=== PATIENT | female | born 1970 | race Caucasian/White ===

== ENCOUNTER 2019-05-30 06:23 | Emergency (ER) | payer SELFPAY ==
[~2019-05-30] VITALS: Ht 152.4 cm; Wt 88.9 kg
[~2019-05-30 06:23] MED LIST: ALPR0.5T PO; CITA10TA4 PO; CITA20TA6 PO; TRAM50TA PO
[2019-05-30 06:32] VITALS: BP 163/88
[2019-05-30] MEDS ORDERED: KETOROLAC 60 MG/2 ML VIAL. IM ONE (06:45)
[2019-05-30] MEDS ORDERED: CYCLOBENZAPRINE 10 MG TABLET. PO ONE (06:45)
[2019-05-30] MEDS ORDERED: CYCL10TA2 PO (06:49)
[2019-05-30] MEDS ORDERED: HYDR-3164 PO (06:49)
--- NOTE | 2019-05-30 06:49 | PHYS DOC ---
Past Medical History Past Medical History: Anxiety, Depression, Other Additional Past Medical Histor: SVT Past Surgical History: , Hysterectomy, Tubal ligation Additional Past Surgical Histo: carpal tunnel, breast reduction Alcohol Use: Rarely Drug Use: None Adult General Chief Complaint Chief Complaint: Neck Pain HPI HPI Patient is a 48 year old female with history of anxiety and depression and SVT who presents with complaining of neck pain. Patient complaining of gradual onset of right-sided neck pain for 1 week that getting worse for the last 3 days as an aching pain that getting worse with turning the head to right side. Patient rated her pain 9/10 and denies focal neuro deficit, fever and chills, injury, history of the same problem. Patient states she took [id number] pain medication besides hydrocodone and applied heat and ice on her neck without improvement of her pain. Review of Systems Review of Systems Constitutional: Denies fever or chills [] Eyes: Denies change in visual acuity, redness, or eye pain [] HENT: Denies nasal congestion or sore throat [] Respiratory: Denies cough or shortness of breath [] Cardiovascular: No additional information not addressed in HPI [] GI: Denies abdominal pain, nausea, vomiting, bloody stools or diarrhea [] : Denies dysuria or hematuria [] Musculoskeletal: Reports back pain, denies joint pain [] Integument: Denies rash or skin lesions [] Neurologic: Denies headache, focal weakness or sensory changes [] Endocrine: Denies polyuria or polydipsia [] All other systems were reviewed and found to be within normal limits, except as documented in this note. Current Medications Current Medications Current Medications Medications (Trade) Dose Ordered Sig/Peter Start Time Stop Time Status Last Admin Dose Admin Cyclobenzaprine HCl (Flexeril) 10 mg 1X ONCE 05/30/19 06:45 05/30/19 06:46 DC 05/30/19 06:44 10 MG Ketorolac Tromethamine (Toradol Im) 60 mg 1X ONCE 05/30/19 06:45 05/30/19 06:46 DC 05/30/19 06:44 60 MG Allergies Allergies Allergies Coded Allergies Type Severity Reaction Last Updated Verified No Known Drug Allergies 09/03/14 No Physical Exam Physical Exam Constitutional: Well developed, well nourished, mild distress, non-toxic appearance. [] HENT: Normocephalic, atraumatic. Eyes: PERRLA, EOMI, conjunctiva normal, no discharge. [] Neck: No midline tenderness, right paraspinal muscular spasm, painful range of motion without meningeal sign , supple, no stridor. [] Cardiovascular:Heart rate regular rhythm, no murmur [] Lungs & Thorax: Bilateral breath sounds clear to auscultation [] Back: No tenderness, no CVA tenderness. [] Extremities: No tenderness, no cyanosis, no clubbing, ROM intact, no edema. [] Neurologic: Alert and oriented X 3, no focal deficits noted. [] Psychologic: Affect normal, judgement normal, mood normal. [] Current Patient Data Vital Signs Vital Signs Date Time Temp Pulse Resp B/P (MAP) Pulse Ox O2 Delivery O2 Flow Rate FiO2 05/30/19 06:32 98.0 80 16 163/88 (113) 99 Room Air 98.0 EKG EKG [] Radiology/Procedures Radiology/Procedures [] Course & Med Decision Making Course & Med Decision Making Evaluation of patient in ER showed 48-year-old male patient with pain for which movement one week and was stated maybe she slept in the wrong way hit her neck. Patient had paraspinal muscle spasm in right side without meningeal sign. Patient treated with Toradol and Flexeril in ER and plan discharge patient home with diagnosis of acute cervical muscle strain. Patient was advised to apply ice and prescription for Flexeril and hydrocodone was given. Dragon Disclaimer Dragon Disclaimer This electronic medical record was generated, in whole or in part, using a voice recognition dictation system. Departure Departure Impression: Primary Impression: Acute cervical myofascial strain Disposition: 01 HOME, SELF-CARE (At 0647) Condition: IMPROVED Referrals: RAIMUNDO PRIDE MD (PCP) Patient Instructions: Cervical Strain and Sprain with [facility] Additional Instructions: Drink plenty of liquids Follow-up with your primary care physician in 3-5 days Return to ER if not getting better Apply ice on the affected area Scripts Hydrocodone/Apap 5-325 (NORCO 5-325 TABLET) 1 Each Tablet 1-2 TAB PO Q4-6HRS for pain, #14 TAB Prov: JOSUE CONSTANTINO MD 05/30/19 Cyclobenzaprine Hcl (CYCLOBENZAPRINE HCL) 10 Mg Tablet 1 TAB PO TID, #21 TAB Prov: JOSUE CONSTANTINO MD 05/30/19 Problem Qualifiers Primary Impression: Acute cervical myofascial strain Encounter type: initial encounter Qualified Codes: S16.1XXA - Strain of muscle, fascia and tendon at neck level, initial encounter JOSUE CONSTANTINO MD May 30, 2019 06:49
== END 2019-05-30 07:09 | disposition home or self-care (01) ==
LOC: ER 06:23
DX: S16.1XXA Strain of muscle, fascia and tendon at neck level, initial encounter (principal); F41.9 Anxiety disorder, unspecified; F32.9 Major depressive disorder, single episode, unspecified; Z90.710 Acquired absence of both cervix and uterus; Z98.51 Tubal ligation status; Z98.890 Other specified postprocedural states; X58.XXXA Exposure to other specified factors, initial encounter; Y93.89 Activity, other specified; Y92.89 Other specified places as the place of occurrence of the external cause; Y99.8 Other external cause status
CPT/HCPCS: 96372; 99283; J1885

== ENCOUNTER 2019-08-16 13:55 | Emergency (ER) | payer SELFPAY ==
[~2019-08-16] VITALS: Ht 152.4 cm; Wt 89.4 kg
[~2019-08-16 13:55] MED LIST changes: +CYCL10TA2 PO; +HYDR-3164 PO
--- NOTE | 2019-08-16 14:22 | PHYS DOC ---
Past Medical History Past Medical History: Anxiety, Depression, Other Additional Past Medical Histor: SVT Past Surgical History: , Hysterectomy, Tubal ligation Additional Past Surgical Histo: carpal tunnel, breast reduction Smoking Status: Current Every Day Smoker Alcohol Use: Rarely Drug Use: None Adult General Chief Complaint Chief Complaint: Palpitations HPI HPI Patient is a 48 year old female who presents with palpitations is been ongoing for the last several days. The patient states that she has a history of SVT. States that she feels short of breath sometimes when she has the palpitations. The patient also states that he gets the worse on exertion. Denies any other symptoms. Review of Systems Review of Systems Constitutional: Denies fever or chills [] Eyes: Denies change in visual acuity, redness, or eye pain [] HENT: Denies nasal congestion or sore throat [] Respiratory: Reports shortness of breath. Cardiovascular: No additional information not addressed in HPI [] GI: Denies abdominal pain, nausea, vomiting, bloody stools or diarrhea [] : Denies dysuria or hematuria [] Musculoskeletal: Denies back pain or joint pain [] Integument: Denies rash or skin lesions [] Neurologic: Denies headache, focal weakness or sensory changes [] Endocrine: Denies polyuria or polydipsia [] Complete systems were reviewed and found to be within normal limits, except as documented in this note. Current Medications Current Medications Current Medications Medications (Trade) Dose Ordered Sig/[facility] Start Time Stop Time Status Last Admin Dose Admin Aspirin (Children'S Aspirin) 324 mg 1X ONCE 08/16/19 14:30 08/16/19 14:31 DC 08/16/19 14:38 324 MG Allergies Allergies Allergies Coded Allergies Type Severity Reaction Last Updated Verified No Known Drug Allergies 09/03/14 No Physical Exam Physical Exam Constitutional: Well developed, well nourished, no acute distress, non-toxic appearance. [] HENT: Normocephalic, atraumatic, bilateral external ears normal, oropharynx moist, no oral exudates, nose normal. [] Eyes: PERRLA, EOMI, conjunctiva normal, no discharge. [] Neck: Normal range of motion, no tenderness, supple, no stridor. [] Cardiovascular:Heart rate regular rhythm, no murmur [] Lungs & Thorax: Bilateral breath sounds clear to auscultation [] Skin: Warm, dry, no erythema, no rash. [] Back: No tenderness, no CVA tenderness. [] Extremities: No tenderness, no cyanosis, no clubbing, ROM intact, no edema. [] Neurologic: Alert and oriented X 3, normal motor function, normal sensory function, no focal deficits noted. [] Psychologic: Affect normal, judgement normal, mood normal. [] Current Patient Data Vital Signs Vital Signs Date Time Temp Pulse Resp B/P (MAP) Pulse Ox O2 Delivery O2 Flow Rate FiO2 08/16/19 14:25 98.8 90 20 141/82 (101) 99 Room Air 98.8 Lab Values Laboratory Tests Test 08/16/19 14:14 08/16/19 14:23 D-Dimer (Earlene) 0.44 ug/mlFEU (0.00-0.50) Urine Collection Type Unknown Urine Color Yellow Urine Clarity Clear Urine pH 6.5 Urine Specific Barton 1.020 Urine Protein Negative mg/dL (NEG-TRACE) Urine Glucose (UA) Negative mg/dL (NEG) Urine Ketones (Stick) Negative mg/dL (NEG) Urine Blood Negative (NEG) Urine Nitrite Negative (NEG) Urine Bilirubin Negative (NEG) Urine Urobilinogen Dipstick 0.2 mg/dL (0.2 mg/dL) Urine Leukocyte Esterase Negative (NEG) Urine RBC 0 /HPF (0-2) Urine WBC 0 /HPF (0-4) Urine Squamous Epithelial Cells Occ /LPF Urine Bacteria 0 /HPF (0-FEW) Urine Mucus Slight /LPF Thyroid Stimulating Hormone (TSH) 0.262 uIU/mL (0.358-3.74) L White Blood Count 10.3 x10^3/uL (4.0-11.0) Red Blood Count 4.80 x10^6/uL (3.50-5.40) Hemoglobin 14.9 g/dL (12.0-15.5) Hematocrit 42.5 % (36.0-47.0) Mean Corpuscular Volume 89 fL (79-100) Mean Corpuscular Hemoglobin 31 pg (25-35) Mean Corpuscular Hemoglobin Concent 35 g/dL (31-37) Red Cell Distribution Width 14.0 % (11.5-14.5) Platelet Count 277 x10^3/uL (140-400) Neutrophils (%) (Auto) 65 % (31-73) Lymphocytes (%) (Auto) 28 % (24-48) Monocytes (%) (Auto) 7 % (0-9) Eosinophils (%) (Auto) 0 % (0-3) Basophils (%) (Auto) 1 % (0-3) Neutrophils # (Auto) 6.7 x10^3/uL (1.8-7.7) Lymphocytes # (Auto) 2.9 x10^3/uL (1.0-4.8) Monocytes # (Auto) 0.7 x10^3/uL (0.0-1.1) Eosinophils # (Auto) 0.0 x10^3/uL (0.0-0.7) Basophils # (Auto) 0.1 x10^3/uL (0.0-0.2) Prothrombin Time 12.8 SEC (11.7-14.0) Prothrombin Time INR 1.0 (0.8-1.1) Activated Partial Thromboplast Time 34 SEC (24-38) Sodium Level 137 mmol/L (136-145) Potassium Level 3.5 mmol/L (3.5-5.1) Chloride Level 103 mmol/L (98-107) Carbon Dioxide Level 24 mmol/L (21-32) Anion Gap 10 (6-14) Blood Urea Nitrogen 15 mg/dL (7-20) Creatinine 0.8 mg/dL (0.6-1.0) Estimated GFR (Cockcroft-Gault) 76.2 BUN/Creatinine Ratio 19 (6-20) Glucose Level 100 mg/dL (70-99) H Calcium Level 8.9 mg/dL (8.5-10.1) Total Bilirubin 0.4 mg/dL (0.2-1.0) Aspartate Amino Transferase (AST) 11 U/L (15-37) L Alanine Aminotransferase (ALT) 17 U/L (14-59) Alkaline Phosphatase 59 U/L (46-116) Troponin I Quantitative < 0.017 ng/mL (0.000-0.055) Total Protein 7.3 g/dL (6.4-8.2) Albumin 3.8 g/dL (3.4-5.0) Albumin/Globulin Ratio 1.1 (1.0-1.7) Laboratory Tests 08/16/19 14:23 Laboratory Tests 08/16/19 14:23 EKG EKG EKG interpreted by Dr. Agrawal EKG shows normal sinus with rate of 76.[] Radiology/Procedures Radiology/Procedures [][facility] [address] [place] [address] IMAGING REPORT Signed PATIENT: NUNU BRAVO ACCOUNT: [id number] : 1970 LOCATION: ER AGE: 48 SEX: F EXAM STATUS: REG ER ORD. PHYSICIAN: JACKY WHITLOCK APRN REASON: sob, palpitations today PROCEDURE: CHEST PA & LATERAL CHEST PA LATERAL History: Shortness of breath, palpitations. COMPARISON: November 27, 2014 image, without report. FINDINGS: The cardiomediastinal silhouette is not enlarged. The aorta is mildly tortuous and ectatic, similar to prior. No evidence of pneumothorax. No evidence of pleural effusion. No evidence of infiltrate. Small dense nodule left lung base appears unchanged, compatible with a granuloma. Bones appear grossly intact. IMPRESSION: No evidence of consolidating infiltrate. Electronically signed by: Jacky Hansen MD (08/16/2019 2:35 PM) [id number] DICTATED and SIGNED BY: JACKY HANSEN MD DATE: 08/16/19 1435 Course & Med Decision Making Course & Med Decision Making Pertinent Labs and Imaging studies reviewed. (See chart for details) Will get EKG, labs, Chest x-ray and give supportive care. Workup is unremarkable with exception of low TSH, likely indicates hyperthyroidism. Discussed with patient and will have patient follow up with Dr. Morin for further workup. Patient is agreeable to this plan. I will add on Free T4 and Free T3 to help outpatient evaluation. Dragon Disclaimer Dragon Disclaimer This electronic medical record was generated, in whole or in part, using a voice recognition dictation system. Departure Departure Impression: Primary Impression: Hyperthyroidism Disposition: HOME, SELF-CARE Condition: STABLE Referrals: NO PCP (PCP) Patient Instructions: Hyperthyroidism Additional Instructions: Thank you for visiting [facility]. We appreciate you trusting us with your care. If any additional problems come up don't hesitate to return to visit us. Please follow up with your primary care provider so they can plan additional care if needed and know about the problem that you had. If symptoms worsen come back to the Emergency Department. Any concerning symptoms that start such as chest pain, shortness of air, weakness or numbness on one side of the body, running high fevers or any other concerning symptoms return to the ER. Please follow-up with Dr. Morin for further work-up. JACKY WHITLOCK APRN Aug 16, 2019 14:22
--- NOTE | 2019-08-16 14:25 | EKG ---
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
[2019-08-16] MEDS ORDERED: ASPIRIN CHEWABLE 81 MG TABLET. PO ONE (14:30)
--- NOTE | 2019-08-16 14:38 | RAD ---
CHEST PA LATERAL History: Shortness of breath, palpitations. COMPARISON: November 27, 2014 image, without report. FINDINGS: The cardiomediastinal silhouette is not enlarged. The aorta is mildly tortuous and ectatic, similar to prior. No evidence of pneumothorax. No evidence of pleural effusion. No evidence of infiltrate. Small dense nodule left lung base appears unchanged, compatible with a granuloma. Bones appear grossly intact. IMPRESSION: No evidence of consolidating infiltrate. Electronically signed by: Jacky Hansen MD (08/16/2019 2:35 PM) [id number]
[2019-08-16 14:39] LABS: BASO # 0.1 x10^3/uL (0.0-0.2); BASO % 1 % (0-3); EOS % 0 % (0-3); HEMATOCRIT 42.5 % (36.0-47.0); HEMOGLOBIN 14.9 g/dL (12.0-15.5); LYMPH # 2.9 x10^3/uL (1.0-4.8); LYMPH % 28 % (24-48); MEAN CORPUSCULAR HEMOGLOBIN 31 pg (25-35); MEAN CORPUSCULAR HGB CONC 35 g/dL (31-37); MEAN CORPUSCULAR VOLUME 89 fL (79-100); MONO # 0.7 x10^3/uL (0.0-1.1); MONO % 7 % (0-9); NEUT # 6.7 x10^3/uL (1.8-7.7); NEUT % 65 % (31-73); PLATELET COUNT 277 x10^3/uL (140-400); WHITE BLOOD COUNT 10.3 x10^3/uL (4.0-11.0)
[2019-08-16 14:41] LABS: BILIRUBIN,URINE NEGATIVE (NEG); CLARITY,URINE CLEAR; COLOR,URINE YELLOW; NITRITE,URINE NEGATIVE (NEG); PH,URINE 6.5; PROTEIN,URINE NEGATIVE (NEG-TRACE); UROBILINOGEN,URINE 0.2 mg/dL (0.2 mg/dL)
[2019-08-16 14:48] LABS: BACTERIA,URINE 0 /HPF (0-FEW); RBC,URINE 0 /HPF (0-2); SQUAMOUS EPITHELIAL CELL,UR OCC /LPF; WBC,URINE 0 /HPF (0-4)
[2019-08-16 14:48] LABS: PROTHROMBIN TIME PATIENT 12.8 SEC (11.7-14.0)
[2019-08-16 15:02] LABS: CALCIUM 8.9 mg/dL (8.5-10.1); CREATININE 0.8 mg/dL (0.6-1.0); GFR 76.2; POTASSIUM 3.5 mmol/L (3.5-5.1)
[2019-08-16 15:07] LABS: ALBUMIN 3.8 g/dL (3.4-5.0); ALBUMIN/GLOBULIN RATIO 1.1 (1.0-1.7); TOTAL BILIRUBIN 0.4 mg/dL (0.2-1.0); TOTAL PROTEIN 7.3 g/dL (6.4-8.2)
[2019-08-16 15:21] VITALS: BP 132/83
[2019-08-16 16:16] LABS: FREE T4 0.88 ng/dL (0.76-1.46)
== END 2019-08-16 15:55 | disposition home or self-care (01) ==
LOC: ER 13:55
DX: E05.90 Thyrotoxicosis, unspecified without thyrotoxic crisis or storm (principal); R06.02 Shortness of breath; R00.2 Palpitations; F41.9 Anxiety disorder, unspecified; F32.9 Major depressive disorder, single episode, unspecified; F17.200 Nicotine dependence, unspecified, uncomplicated; Z98.51 Tubal ligation status; Z90.710 Acquired absence of both cervix and uterus; Z98.890 Other specified postprocedural states; Z79.82 Long term (current) use of aspirin
CPT/HCPCS: 36415; 71046; 80053; 81001; 84439; 84443; 84481; 84484; 85025; 85379; 85610; 85730; 93005; 99285

== ENCOUNTER 2019-12-11 15:00 | Emergency (ER) | payer SELFPAY ==
[~2019-12-11] VITALS: Ht 152.4 cm; Wt 90.0 kg
[2019-12-11 15:10] VITALS: BP 152/92
--- NOTE | 2019-12-11 15:47 | PHYS DOC ---
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 Patient reports that she was stepping into the bathtub and slipped on some conditioner and fell on Thursday. Patient describes pain as an aching pain. She reports that she feels popping in left thumb when she tries to flex it. She rates the pain 10 out of 10 and has taken hydrocodone at home for the pain. There is 1+ swelling noted to left thumb. Patient reports difficulty bending thumb due to pain and swelling. Sensation is intact to left upper extremity. Patient has strong pulse noted to left radial. Cap refill is less than 2 seconds and left upper extremity is warm. (ODALYS TAPIA HOGSHEAD WEIGHER) Review of Systems: Review of Systems: Constitutional: Denies fever or chills. [] Eyes: Denies change in visual acuity. [] HENT: Denies nasal congestion or sore throat. [] Respiratory: Denies cough or shortness of breath. [] Cardiovascular: Denies chest pain or edema. [] GI: Denies abdominal pain, nausea, vomiting, bloody stools or diarrhea. [] : Denies dysuria. [] Musculoskeletal: Denies back pain. Left thumb radiating to wrist joint pain. [] Integument: Denies rash. [] Neurologic: Denies headache, focal weakness or sensory changes. [] Endocrine: Denies polyuria or polydipsia. [] Lymphatic: Denies swollen glands. [] Psychiatric: Denies depression or anxiety. [] (ODALYS TAPIA HOGSHEAD WEIGHER) Heart Score: Risk Factors: Risk Factors: DM, Current or recent (<one month) smoker, HTN, HLP, family history of CAD, obesity. Risk Scores: Score 0 - 3: 2.5% MACE over next 6 weeks - Discharge Home Score 4 - 6: 20.3% MACE over next 6 weeks - Admit for Clinical Observation Score 7 - 10: 72.7% MACE over next 6 weeks - Early Invasive Strategies ([facility]) Allergies: Allergies: Allergies Coded Allergies Type Severity Reaction Last Updated Verified No Known Drug Allergies 09/03/14 No (ODALYS TAPIA APRN) Physical Exam: PE: Constitutional: Well developed, well nourished, no acute distress, non-toxic appearance. [] HENT: Normocephalic, atraumatic, bilateral external ears normal, oropharynx moist, no oral exudates, nose normal. [] Eyes: PERRLA, EOMI, conjunctiva normal, no discharge. [] Neck: Normal range of motion, no tenderness, supple, no stridor. [] Cardiovascular:Heart rate regular rhythm, no murmur [] Lungs & Thorax: Bilateral breath sounds clear to auscultation [] Abdomen: Bowel sounds normal, soft, no tenderness, no masses, no pulsatile masses. [] Skin: Warm, dry, no erythema, no rash. [] Back: No tenderness, no CVA tenderness. [] Extremities: Left thumb tenderness, no cyanosis, no clubbing, left thumb ROM not intact, 1+ edema. [] Neurologic: Alert and oriented X 3, normal motor function, normal sensory functi on, no focal deficits noted. [] Psychologic: Affect normal, judgement normal, mood normal. [] ([facility]) Current Patient Data: Vital Signs: Vital Signs Date Time Temp Pulse Resp B/P (MAP) Pulse Ox O2 Delivery O2 Flow Rate FiO2 12/11/19 15:10 98.4 73 16 152/92 (112) 97 Room Air 98.4 ([facility] EKG: EKG: [] [facility] Radiology/Procedures: Radiology/Procedures: [] Impression: [facility] [address] [place] [address] IMAGING REPORT Signed PATIENT: NUNU BRAVO ACCOUNT: [id number] : 1970 LOCATION: ER AGE: 48 SEX: F EXAM STATUS: REG ER ORD. PHYSICIAN: ODALYS TAPIA APRN REASON: fall, pain PROCEDURE: HAND LEFT 3V PROCEDURE: HAND LEFT 3V, WRIST 3V LEFT STUDY DATE: 12/11/2019 CLINICAL INDICATION / HISTORY: Reason: fall, pain / Spl. Instructions: / History: . TECHNIQUE: PA, lateral and oblique views of the left hand. COMPARISON: None FINDINGS: No fracture or dislocation is identified. The bone density is normal. The joint spaces are maintained, and there are no erosions to suggest an inflammatory arthropathy. The soft tissues are unremarkable. IMPRESSION: No acute osseous abnormality in the left hand. PROCEDURE: HAND LEFT 3V, WRIST 3V LEFT STUDY DATE: 12/11/2019 CLINICAL INDICATION / HISTORY: Reason: fall, pain / Spl. Instructions: / History: . TECHNIQUE: Left wrist 3 views. AP, lateral, and oblique views. COMPARISON: Left hand x-rays same day FINDINGS: The radiocarpal and intracarpal relationships are maintained. There is no fracture or dislocation. The bone density is normal. No soft tissue abnormality is seen. IMPRESSION: No acute osseous abnormality in the left wrist. Electronically signed by: Alejo Talamantes MD (12/11/2019 4:07 PM) [id number] DICTATED and SIGNED BY: ALEJO TALAMANTES MD DATE: 12/11/19 1607 (ODALYS TAPIA APRN) Course & Med Decision Making: Course & Med Decision Making Pertinent Labs and Imaging studies reviewed. (See chart for details) Skin pink warm and dry. Patient has full range of motion at the wrist and there is no tenderness at the wrist. Pain only radiates from the left thumb to the wrist. Patient has no joint laxity in the left hand or fingers. Patient cannot make a full fist due to swelling and pain. Patient states she has been using ice and elevation to help with pain and swelling. No injury to nail bed. Mohit wrap is applied. Patient to follow-up with orthopedic. [] (ODALYS TAPIA APRN) Dragon Disclaimer: Dragon Disclaimer: This electronic medical record was generated, in whole or in part, using a voice recognition dictation system. (ODALYS TAPIA APRN) Departure Departure Impression: Primary Impression: Thumb pain Qualified Codes: M79.645 - Pain in left finger(s) Disposition: 01 HOME, SELF-CARE Condition: STABLE Referrals: NO PCP (PCP) LIBBY MEJIA MD Patient Instructions: Finger Sprain, Hand Contusion Additional Instructions: Follow-up with orthopedic to make sure there is no ligament tears or damage. Use ice and elevation to help with your pain. Continue taking your hydrocodone to help with your pain. Scripts Ibuprofen (IBUPROFEN) 600 Mg Tablet 600 MG PO PRN Q6HRS PRN for INFLAMMATION, #20 TAB Prov: ODALYS TAPIA APRN 12/11/19 Justicifation of Admission Dx: Justifications for Admission: Justification of Admission Dx: N/A (ODALYS TAPIA APRN) Attending Signature Attending Signature I have participated in the care of this patient and I have reviewed and agree with all pertinent clinical information above including history, exam, and recommendations. (ERIS DAVIS DO) ODALYS TAPIA APRN Dec 11, 2019 15:47 ERIS DAVIS DO Dec 11, 2019 16:41
--- NOTE | 2019-12-11 16:10 | RAD ---
PROCEDURE: HAND LEFT 3V, WRIST 3V LEFT STUDY DATE: 12/11/2019 CLINICAL INDICATION / HISTORY: Reason: fall, pain / Spl. Instructions: / History: . TECHNIQUE: PA, lateral and oblique views of the left hand. COMPARISON: None FINDINGS: No fracture or dislocation is identified. The bone density is normal. The joint spaces are maintained, and there are no erosions to suggest an inflammatory arthropathy. The soft tissues are unremarkable. IMPRESSION: No acute osseous abnormality in the left hand. PROCEDURE: HAND LEFT 3V, WRIST 3V LEFT STUDY DATE: 12/11/2019 CLINICAL INDICATION / HISTORY: Reason: fall, pain / Spl. Instructions: / History: . TECHNIQUE: Left wrist 3 views. AP, lateral, and oblique views. COMPARISON: Left hand x-rays same day FINDINGS: The radiocarpal and intracarpal relationships are maintained. There is no fracture or dislocation. The bone density is normal. No soft tissue abnormality is seen. IMPRESSION: No acute osseous abnormality in the left wrist. Electronically signed by: Kathy Talamantes MD (12/11/2019 4:07 PM) [id number]
[2019-12-11] MEDS ORDERED: IBUP-1007 PO (16:27)
== END 2019-12-11 16:31 | disposition home or self-care (01) ==
LOC: ER 15:00
DX: M79.645 Pain in left finger(s) (principal); M25.532 Pain in left wrist; R60.0 Localized edema; R20.0 Anesthesia of skin; F41.9 Anxiety disorder, unspecified; F32.9 Major depressive disorder, single episode, unspecified; F17.200 Nicotine dependence, unspecified, uncomplicated; Z90.710 Acquired absence of both cervix and uterus; Z98.51 Tubal ligation status; Z98.890 Other specified postprocedural states
CPT/HCPCS: 73110; 73130; 99284

== ENCOUNTER 2020-03-07 23:48 | Emergency (ER) | payer SELFPAY ==
[~2020-03-07] VITALS: Ht 152.4 cm; Wt 91.0 kg
[~2020-03-07 23:48] MED LIST changes: +IBUP-1007 PO
[2020-03-08] MEDS ORDERED: IBUP-1007 PO (02:39)
[2020-03-08] MEDS ORDERED: PENI500T PO (02:39)
--- NOTE | 2020-03-08 02:40 | PHYS DOC ---
Past Medical History Past Medical History: Anxiety, Depression, Other Additional Past Medical Histor: SVT Past Surgical History: , Hysterectomy, Tubal ligation Additional Past Surgical Histo: carpal tunnel, breast reduction Smoking Status: Current Every Day Smoker Alcohol Use: Rarely Drug Use: None General Adult EDM: Chief Complaint: DENTAL PROBLEM HPI: HPI: 49-year-old female past medical history of SVT and anxiety, presents the ED with complaints of dental pain for the past 2 weeks. Patient states she was unable to sleep tonight. No relief with tramadol 50 mg, heating pad or Orajel. Patient states her crown broke off of her upper right tooth 2 weeks ago. Reports known cavity over her right lower tooth. Review of Systems: Review of Systems: Constitutional: Denies fever or chills. [] Eyes: Denies change in visual acuity. [] HENT: Denies nasal congestion or sore throat. [] Respiratory: Denies cough or shortness of breath. [] Cardiovascular: Denies chest pain or edema. [] GI: Denies abdominal pain, nausea, vomiting, bloody stools or diarrhea. [] : Denies dysuria. [] Musculoskeletal: Denies back pain or joint pain. [] Integument: Denies rash. [] Neurologic: Denies headache, focal weakness or sensory changes. [] Endocrine: Denies polyuria or polydipsia. [] Lymphatic: Denies swollen glands. [] Psychiatric: Denies depression or anxiety. [] Heart Score: Risk Factors: Risk Factors: DM, Current or recent (<one month) smoker, HTN, HLP, family history of CAD, obesity. Risk Scores: Score 0 - 3: 2.5% MACE over next 6 weeks - Discharge Home Score 4 - 6: 20.3% MACE over next 6 weeks - Admit for Clinical Observation Score 7 - 10: 72.7% MACE over next 6 weeks - Early Invasive Strategies Allergies: Allergies: Allergies Coded Allergies Type Severity Reaction Last Updated Verified No Known Drug Allergies 09/03/14 No Physical Exam: PE: Constitutional: Well developed, well nourished, no acute distress, non-toxic appearance. [] HENT: Normocephalic, atraumatic, bilateral external ears normal, oropharynx moist, no oral exudates, nose normal. [] Eyes: PERRLA, EOMI, conjunctiva normal, no discharge. [] Neck: Normal range of motion, no tenderness, supple, no stridor. [] Cardiovascular:Heart rate regular rhythm, no murmur [] Lungs & Thorax: Bilateral breath sounds clear to auscultation [] Abdomen: Bowel sounds normal, soft, no tenderness, no masses, no pulsatile masses. [] Skin: Warm, dry, no erythema, no rash. [] Back: No tenderness, no CVA tenderness. [] Extremities: No tenderness, no cyanosis, no clubbing, ROM intact, no edema. [] Neurologic: Alert and oriented X 3, normal motor function, normal sensory function, no focal deficits noted. [] Psychologic: Affect normal, judgement normal, mood normal. [] EKG: EKG: [] Radiology/Procedures: Radiology/Procedures: [] Course & Med Decision Making: Course & Med Decision Making Pertinent Labs and Imaging studies reviewed. (See chart for details) Declines option for dental block. will drive pt home. Encouraged dental clinic in am. Encouraged urgent outpatient follow-up with PMD and [facility]. Life-threatening processes were considered but are low suspicion at this time, given history and physical exam. Pt was educated on all prescription medications and adverse effects. All patient's questions were answered and pt was stable at time of discharge. Differential includes aortic dissection, cauda equina syndrome, transverse myelitis, spinal cord compression, epidural abscess or hematoma, osteomyelitis, disc herniation, surgical abdomen, stable or unstable fracture, renal colic/urosepsis, musculoskeletal injury, traumatic injury, intraabdominal or pelvic bleeding, I spoken with the patient and her caregivers. I explained the patient's condition, diagnoses and treatment plan based on the information available to me at this time. I have answered the patient and her caregiver's questions and addressed any concerns. The patient and her caregivers have a good understanding of patient's diagnosis, condition and treatment plan as can be expected at this point. Vital signs have been stable. Patient's condition is stable and appropriate for discharge from the emergency department. Patient will pursue further outpatient evaluation with primary care physician or other designated or consulting physician as outlined in the discharge instructions. The patient and/or caregivers are agreeable to this plan of care and follow-up instructions have been explained in detail. The patient and/or caregivers have received these instructions in written form and have expressed an understanding of the discharge instructions. The patient and/or caregivers are aware that any significant change of condition or worsening of symptoms should prompt immediate return to this or the closest emergency department or call to [facility] Disclaimer: Sandeep Disclaimer: This electronic medical record was generated, in whole or in part, using a voice recognition dictation system. Departure Departure Impression: Primary Impression: Dental caries Disposition: 01 HOME, SELF-CARE Condition: STABLE Referrals: NO PCP (PCP) Patient Instructions: Dental Caries Additional Instructions: [facility] dental clinic [address] [place] [address] EMERGENCY DEPARTMENT GENERAL DISCHARGE INSTRUCTIONS Thank you for coming to [facility] Emergency Department (ED) today and trusting us with you care. We trust that you had a positive experience in our Emergency Department. If you wish to speak to the department management, you may call the Director at [phone]. YOUR FOLLOW UP INSTRUCTIONS ARE FOLLOWS: 1. Do you have a private Doctor? If you do not have a private doctor, please ask for a resource list of physicians or clinics that may be able to assist you with follow up care. 2. The Emergency Physicain has interpreted your x-rays. The X-Ray specialist will also review them. If there is a change in the findings, you will be notified in 48 hours when at all possible. 3. A lab test or culture has been done, your results will be reviewed and you will be notified if you need a change in treatment. ADDITIONAL INSTRUCTIONS AND INFORMATION: 1. Your care today has been supervised by a physician who is specially trained in emergency care. Many problems require more than one evaluation for a complete diagnosis and treatment. We recommend that you schedule your follow up appointment as recommended to ensure complete treatment of you illness or injury. If you are unable to obtain follow up care and continue to have a problem, or if your condition worsens, we recommend that you return to the ED. 2. We are not able to safely determine your condition over the phone nor are we able to give sound medical advice over the phone. For these safety reasons, if you call for medical advice we will ask you to come to the ED for further evaluation. 3. If you have any questions regarding these discharge instructions please call the ED at [phone]. SAFETY INFORMATION: In the interest of safety, wellness, and injury prevention; we encourage you to wear your sealbelt, if you smoke; quite smoking, and we encourage family to use a protective helmet for bicycling and other sporting events that present an increased risk for head injury. IF YOUR SYMPTOMS WORSEN OR NEW SYMPTOMS DEVELOP, OR YOU HAVE CONCERNS ABOUT YOUR CONDITION; OR IF YOUR CONDITION WORSENS WHILE YOU ARE WAITING FOR YOUR FOLLOW UP APPO INTMENT; EITHER CONTACT YOUR PRIMARY CARE DOCTOR, THE PHYSICIAN WHOSE NAME AND NUMBER YOU WERE GIVEN, OR RETURN TO THE ED IMMEDIATELY. Scripts Ibuprofen (IBUPROFEN) 600 Mg Tablet 600 MG PO PRN Q6HRS PRN for PAIN, #20 TAB take with food or milk Prov: TERRENCE ALSTON DO 03/08/20 Penicillin V Potassium (PENICILLIN V POTASSIUM) 500 Mg Tablet 2 TAB PO Q12HR, #40 TAB Prov: TERRENCE ALSTON DO 03/08/20 Justicifation of Admission Dx: Justifications for Admission: Justification of Admission Dx: N/A TERRENCE ALSTON DO Mar 08, 2020 02:40
[2020-03-08] MEDS ORDERED: HYDROcodone/APAP 5/325MG 1 TAB TABLET PO ONE (03:00)
[2020-03-08 03:01] VITALS: BP 130/76
--- NOTE | 2020-03-08 05:23 | PHYS DOC ---
Past Medical History Past Medical History: Anxiety, Depression, Other Additional Past Medical Histor: SVT Past Surgical History: , Hysterectomy, Tubal ligation Additional Past Surgical Histo: carpal tunnel, breast reduction Smoking Status: Current Every Day Smoker Alcohol Use: Rarely Drug Use: None General Adult EDM: Chief Complaint: DENTAL PROBLEM HPI: HPI: 49-year-old female past medical history significant for SVT and anxiety, presents to the ED with complaints of dental pain for the past 2 weeks. Patient states she broke off her crown over her upper right tooth 2 weeks ago. Also complains of dental pain to her right lower tooth. Patient states she cannot sleep, no relief with tramadol 50 mg at 8 PM, Orajel and a heating pad. Does not have insurance so she has not been to a dentist. Review of Systems: Review of Systems: Constitutional: Denies fever or chills. [] Eyes: Denies change in visual acuity. [] HENT: Denies nasal congestion or sore throat. [] Respiratory: Denies cough or shortness of breath. [] Cardiovascular: Denies chest pain or edema. [] GI: Denies abdominal pain, nausea, vomiting, bloody stools or diarrhea. [] : Denies dysuria. [] Musculoskeletal: Denies back pain or joint pain. [] Integument: Denies rash. [] Neurologic: Denies headache, focal weakness or sensory changes. [] Endocrine: Denies polyuria or polydipsia. [] Lymphatic: Denies swollen glands. [] Psychiatric: Denies depression or anxiety. [] Heart Score: Risk Factors: Risk Factors: DM, Current or recent (<one month) smoker, HTN, HLP, family history of CAD, obesity. Risk Scores: Score 0 - 3: 2.5% MACE over next 6 weeks - Discharge Home Score 4 - 6: 20.3% MACE over next 6 weeks - Admit for Clinical Observation Score 7 - 10: 72.7% MACE over next 6 weeks - Early Invasive Strategies Allergies: Allergies: Allergies Coded Allergies Type Severity Reaction Last Updated Verified No Known Drug Allergies 09/03/14 No Physical Exam: PE: Constitutional: Well developed, well nourished, no acute distress, non-toxic appearance. [] HENT: Normocephalic, atraumatic, bilateral external ears normal, oropharynx moist, no oral exudates, nose normal. [] Eyes: PERRLA, EOMI, conjunctiva normal, no discharge. [] Neck: Normal range of motion, no tenderness, supple, no stridor. [] Cardiovascular:Heart rate regular rhythm, no murmur [] Lungs & Thorax: Bilateral breath sounds clear to auscultation [] Abdomen: Bowel sounds normal, soft, no tenderness, no masses, no pulsatile masses. [] Skin: Warm, dry, no erythema, no rash. [] Back: No tenderness, no CVA tenderness. [] Extremities: No tenderness, no cyanosis, no clubbing, ROM intact, no edema. [] Neurologic: Alert and oriented X 3, normal motor function, normal sensory function, no focal deficits noted. [] Psychologic: Affect normal, judgement normal, mood normal. [] Radiology/Procedures: Radiology/Procedures: [] Course & Med Decision Making: Course & Med Decision Making Pertinent Labs and Imaging studies reviewed. (See chart for details) [] Dragon Disclaimer: Sandeep Disclaimer: This electronic medical record was generated, in whole or in part, using a voice recognition dictation system. Departure Departure Disposition: HOME, SELF-CARE Condition: STABLE Referrals: NO PCP (PCP) Justicifation of Admission Dx: Justifications for Admission: Justification of Admission Dx: N/A TERRENCE ALSTON DO Mar 08, 2020 05:23
== END 2020-03-08 03:01 | disposition home or self-care (01) ==
LOC: ER 23:48
DX: K02.9 Dental caries, unspecified (principal); K08.89 Other specified disorders of teeth and supporting structures; F41.9 Anxiety disorder, unspecified; F32.9 Major depressive disorder, single episode, unspecified; F17.200 Nicotine dependence, unspecified, uncomplicated; Z90.710 Acquired absence of both cervix and uterus; Z98.51 Tubal ligation status; Z98.890 Other specified postprocedural states
CPT/HCPCS: 99283

== ENCOUNTER 2021-01-08 21:40 | Emergency (ER) | payer SELFPAY ==
[~2021-01-08] VITALS: Ht 152.4 cm; Wt 88.0 kg
[~2021-01-08 21:40] MED LIST changes: +PENI500T PO
[2021-01-08] MEDS ORDERED: LIDOCAINE (700MG/PATCH) PATCH. TD SCH (22:16)
[2021-01-08] MEDS ORDERED: HYDROcodone/APAP 5/325MG 1 TAB TABLET PO ONE (22:30)
--- NOTE | 2021-01-08 22:35 | RAD ---
Exam: Chest with right RIBS 2 views INDICATION: Right rib pain TECHNIQUE: Frontal view of the chest with oblique and lateral views of the right ribs Comparisons: None FINDINGS: The cardiomediastinal silhouette and pulmonary vessels are within normal limits. The lung and pleural spaces are clear. No displaced rib fractures. IMPRESSION: 1. No acute cardiopulmonary process. 2. No displaced rib fractures. Electronically signed by: Saw Marc MD (01/08/2021 10:33 PM) [facility]
[2021-01-08] MEDS ORDERED: NAPR-683 PO (22:58)
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
[2021-01-08 23:20] VITALS: BP 128/80
--- NOTE | 2021-01-09 05:26 | EKG ---
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
== END 2021-01-08 23:20 | disposition home or self-care (01) ==
LOC: ER 21:40
DX: S20.211A Contusion of right front wall of thorax, initial encounter (principal); F17.200 Nicotine dependence, unspecified, uncomplicated; V19.9XXA Pedal cyclist (driver) (passenger) injured in unspecified traffic accident, initial encounter; Y93.89 Activity, other specified; Y92.488 Other paved roadways as the place of occurrence of the external cause; Y99.8 Other external cause status
CPT/HCPCS: 71101; 93005; 99283